=== PATIENT | female | born 1940 | race Caucasian/White ===

== ENCOUNTER 2019-07-08 12:05 | Emergency (ER) | payer MEDICARE, BC ==
[2019-07-08] MEDS ORDERED: Sodium Chloride 0.9% 10 ML Syringe FLUSH PRN (12:56)
--- NOTE | 2019-07-08 13:12 | EDM.PDOC ---
ED HPI GENERAL MEDICAL PROBLEM - General Chief Complaint: Respiratory Problem Stated Complaint: SHORTNESS OF BREATH Time Seen by Provider: 07/08/19 12:40 Source of Information: Reports: Patient History Limitations: Reports: No Limitations - History of Present Illness INITIAL COMMENTS - FREE TEXT/NARRATIVE: 78 YO WF presents to ER with shortness of breath x 2 days. Pt had TKA on 2018 and was discharged without complications on 07/06/2019. Pt reports she got home and began to feel more "winded" then normal. Pt reports earlier in the week she developed a head cold prior to surgery but her cold symptoms improved and surgery was performed as scheduled. Pt states she feels wheezing without any history of airway disease. Pt reports chest tightness but no real chest pain. Pt denies fever/chills, no nausea/vomiting, no lower extremity calf pain or significant swelling. Pt reports taking tramadol Q6 for pain. SaO2 on arrival to ER was 78% on RA. Pt is currently on 2L NC @94% and resting comfortably without chest pain or shortness of breath. Onset Date: 07/06/19 Duration: Day(s): (2) Location: Reports: Chest Quality: Reports: Other (tightness) Severity: Moderate Improves with: Reports: Rest Worsens with: Reports: Breathing Associated Symptoms: Reports: Chest Pain, Cough, Shortness of Breath - Related Data Allergies Allergy/AdvReac Type Severity Reaction Status Date / Time No Known Drug Allergies Allergy Cannot Verified 07/08/19 13:04 Remember Home Meds: Home Meds Acetaminophen [Tylenol Arthritis] 650 mg PO BID 07/08/19 [History] Acetaminophen/Diphenhydramine [Tylenol Pm Ex-Strength Caplet] 1 tab PO BEDTIME PRN 07/08/19 [History] Aspirin [Aspirin EC] 325 mg PO BID 07/08/19 [History] Celecoxib 200 mg PO BID 07/08/19 [History] Gluc Aguilar 2KCl/Chondr/Vit C/Kyree [Glucosamine-Chondr Complex] 1 each PO DAILY [History] Multivit-Min/Iron/Folic/Lutein [Multivitamin Women 50 Plus Tab] 1 tab PO DAILY 07/08/19 [History] Polyethylene Glycol 3350 [MiraLAX] 1 packet PO DAILY PRN 07/08/19 [History] Simvastatin 10 mg PO BEDTIME 07/08/19 [History] oxyCODONE 5 mg PO Q4H PRN 07/08/19 [History] traMADol HCl [Tramadol HCl] 50 mg PO DAILY 07/08/19 [History] ED ROS GENERAL - Review of Systems Review Of Systems: See Below Constitutional: Reports: No Symptoms HEENT: Reports: No Symptoms Respiratory: Reports: Shortness of Breath, Wheezing, Cough. Denies: Hemoptysis Cardiovascular: Reports: Chest Pain Endocrine: Reports: No Symptoms GI/Abdominal: Reports: No Symptoms : Reports: No Symptoms Musculoskeletal: Reports: No Symptoms Skin: Reports: No Symptoms Neurological: Reports: No Symptoms Psychiatric: Reports: No Symptoms Hematologic/Lymphatic: Reports: No Symptoms Immunologic: Reports: No Symptoms ED EXAM, GENERAL - Physical Exam Exam: See Below Exam Limited By: No Limitations General Appearance: Alert, WD/WN, No Apparent Distress Nose: Normal Inspection, Normal Mucosa, No Blood Throat/Mouth: Normal Inspection, Normal Lips, Normal Teeth, Normal Gums, Normal Oropharynx, Normal Voice, No Airway Compromise Head: Atraumatic, Normocephalic Neck: Normal Inspection, Supple, Non-Tender, Full Range of Motion Respiratory/Chest: No Respiratory Distress, Lungs Clear, Normal Breath Sounds, No Accessory Muscle Use, Chest Non-Tender Cardiovascular: Normal Peripheral Pulses, Regular Rate, Rhythm, No Edema, No Gallop, No JVD, No Murmur, No Rub GI/Abdominal: Normal Bowel Sounds, Soft, Non-Tender, No Organomegaly, No Distention, No Abnormal Bruit, No Mass Back Exam: Normal Inspection, Full Range of Motion, NT Extremities: Normal Inspection, No Pedal Edema, Normal Capillary Refill Neurological: Alert, Oriented, CN II-XII Intact, Normal Cognition, Normal Gait, Normal Reflexes, No Motor/Sensory Deficits Psychiatric: Normal Affect, Normal Mood Skin Exam: Warm, Dry, Intact, Normal Color, No Rash Lymphatic: No Adenopathy EKG INTERPRETATION EKG Date: 07/08/19 Time: 13:10 Rhythm: NSR Rate (Beats/Min): 87 Barbeau: LAD-Left Barbeau Deviation P-Wave: Present QRS: Normal ST-T: Normal QT: Normal Comparison: NA - No Prior EKG Course - Vital Signs Last Recorded V/S: Last Vital Signs Temp 36.4 C 07/08/19 12:30 Pulse 98 07/08/19 12:30 Resp 20 07/08/19 12:30 BP 135/56 L 07/08/19 12:30 Pulse Ox 93 L 07/08/19 12:32 - Orders/Labs/Meds Orders: Active Orders 24 hr Category Date Time Status Cardiac Monitoring [RC] . DIRECTED Care 07/08/19 12:54 Ordered EKG Documentation Completion [RC] ASDIRECTED Care 07/08/19 12:55 Ordered Oxygen Therapy Adult [Oxygen Therapy, ED] [RC] Care 07/08/19 12:54 Ordered ASDIRECTED Peripheral IV Care [RC] . DIRECTED Care 07/08/19 12:56 Ordered Chest w Cont [CT] Stat Exams 07/08/19 12:54 Ordered Sodium Chloride 0.9% [Normal Saline] 100 ml Med 07/08/19 13:15 Active IV ASDIRECTED Sodium Chloride 0.9% [Saline Flush] Med 07/08/19 12:56 Ordered 10 ml FLUSH Q8HR PRN Peripheral IV Insertion Adult [OM.PC] Routine Oth 07/08/19 12:56 Ordered EKG 12 Lead [EK] Routine Ther 07/08/19 12:54 Ordered Medication Orders Sodium Chloride (Normal Saline) 100 mls @ 200 mls/min IV ASDIRECTED NATALYA Sodium Chloride (Saline Flush) 10 ml FLUSH Q8HR PRN PRN Reason: keep vein open Labs: Laboratory Tests 07/08/19 07/08/19 07/08/19 Range/Units 12:55 12:55 12:55 WBC 10.45 H (5.00-10.00) 10^3/uL RBC 3.38 L (3.80-5.50) 10^6/uL Hgb 10.2 L (12.0-16.0) g/dL Hct 31.3 L (37.0-47.0) % MCV 92.6 H (82.0-92.0) fL MCH 30.2 (27.0-31.0) pg MCHC 32.6 (32.0-36.0) g/dL RDW 14.4 (11.5-14.5) % Plt Count 191 (150-400) 10^3/uL MPV 9.4 (7.4-10.4) fL Immature Gran % (Auto) 0.4 (0.0-5.0) % Neut % (Auto) 76.0 H (50.0-70.0) % Lymph % (Auto) 13.9 L (20.0-40.0) % [place] % (Auto) 8.8 H (2.0-8.0) % Eos % (Auto) 0.6 L (1.0-3.0) % Baso % (Auto) 0.3 (0.0-1.0) % Immature Gran # (Auto) 0.04 (0.00-0.50) 10^3/uL Neut # (Auto) 7.95 H (2.50-7.00) 10^3/uL Lymph # (Auto) 1.45 (1.00-4.00) 10^3/uL [place] # (Auto) 0.92 H (0.10-0.80) 10^3/uL Eos # (Auto) 0.06 L (0.10-0.30) 10^3/uL Baso # (Auto) 0.03 (0.00-0.10) 10^3/uL PT 9.1 (8.9-11.4) SEC INR 0.9 (0.9-1.1) APTT 26.5 (23.1-31.9) SEC Sodium 141 (136-145) mmol/L Potassium 4.7 (3.3-5.3) mmol/L Chloride 99 (98-115) mmol/L Carbon Dioxide 30.2 (21.0-32.0) mmol/L Anion Gap 16.5 H (5-15) mmol/L BUN 18 (6-25) mg/dL Creatinine 0.68 (0.51-1.17) mg/dL Est Cr Clr Drug Dosing 56.98 mL/min Estimated GFR (MDRD) > 60 mL/min Glucose 123 H (75 - 99) mg/dL Calcium 9.1 (8.7-10.3) mg/dL Total Bilirubin 1.8 H (0.2-1.0) mg/dL AST 46 H (15-37) U/L ALT 28 (12-78) U/L Alkaline Phosphatase 87 (46-116) IU/L Creatine Kinase 87 (26-276) U/L CK-MB (CK-2) 0.80 (0.00-4.30) ng/mL Troponin I 0.11 H* (0.00-0.070) ng/mL B-Natriuretic Peptide 372 H (0-100) pg/mL Total Protein 6.6 (6.4-8.2) g/dL Albumin 2.77 L (3.00-4.80) g/dL Meds: Medications Generic Name Dose Route Start Last Admin Trade Name Freq PRN Reason Stop Dose Admin Sodium Chloride 100 mls @ 200 mls/min 07/08/19 13:15 Normal Saline IV ASDIRECTED NATALYA Sodium Chloride 10 ml 07/08/19 12:56 Saline Flush FLUSH Q8HR PRN keep vein open Discontinued Medications Generic Name Dose Route Start Last Admin Trade Name Freq PRN Reason Stop Dose Admin Iopamidol 100 ml 07/08/19 13:15 Isovue-370 (76%) IV 07/08/19 13:16 ONETIME ONE - Radiology Interpretation Free Text/Narrative:: CT Chest- bilateral PE- extensive on the right Departure - Departure Time of Disposition: 14:46 Disposition: DC/Tfer to Acute Hospital 02 Condition: Serious Clinical Impression: Pulmonary embolism Qualifiers: Chronicity: acute Acute cor pulmonale presence: with acute cor pulmonale - Discharge Information Referrals: Nancie Peacock MD [Primary Care Provider] - Forms: ED Department Discharge, Interfacility Transfer [facility] Sepsis Event Note - Evaluation Sepsis Screening Result: No Definite Risk - Focused Exam Vital Signs: Vital Signs Temp Pulse Resp BP Pulse Ox Pulse Ox 07/08/19 12:32 93 L 07/08/19 12:30 36.4 C 98 20 135/56 L 77 L 77 L Date Exam was Performed: 07/08/19 Time Exam was Performed: 13:38 - My Orders Last 24 Hours: My Active Orders 07/08/19 12:54 Cardiac Monitoring [RC] . DIRECTED Oxygen Therapy Adult [Oxygen Therapy, ED] [RC] ASDIRECTED Chest w Cont [CT] Stat EKG 12 Lead [EK] Routine 07/08/19 12:55 EKG Documentation Completion [RC] ASDIRECTED 07/08/19 12:56 Peripheral IV Care [RC] . DIRECTED Sodium Chloride 0.9% [Saline Flush] 10 ml FLUSH Q8HR PRN Peripheral IV Insertion Adult [OM.PC] Routine 07/08/19 13:15 Sodium Chloride 0.9% [Normal Saline] 100 ml IV ASDIRECTED - Assessment/Plan Last 24 Hours: My Active Orders 07/08/19 12:54 Cardiac Monitoring [RC] . DIRECTED Oxygen Therapy Adult [Oxygen Therapy, ED] [RC] ASDIRECTED Chest w Cont [CT] Stat EKG 12 Lead [EK] Routine 07/08/19 12:55 EKG Documentation Completion [RC] ASDIRECTED 07/08/19 12:56 Peripheral IV Care [RC] . DIRECTED Sodium Chloride 0.9% [Saline Flush] 10 ml FLUSH Q8HR PRN Peripheral IV Insertion Adult [OM.PC] Routine 07/08/19 13:15 Sodium Chloride 0.9% [Normal Saline] 100 ml IV ASDIRECTED Assessment:: 1. Bilateral pulmonary emboli Plan: 1. Transfer to [facility]- Dr Mullen 2. Heparin drip with bolus 3. supportive care- oxygen NC @ 2.5L
[2019-07-08 13:34] LABS: ANION GAP 16.5 mmol/L (5-15); CHLORIDE,CL 99 mmol/L (98-115); SODIUM,NA 141 mmol/L (136-145)
[2019-07-08] MEDS: Iopamidol 755 Mg/ML 100 ML Bottle IV ONE (13:55)
[2019-07-08] MEDS: Sodium Chloride 0.9% 100 ML IV SCH (13:56)
[2019-07-08] MEDS: Heparin Sodium/0.45% NaCl 25,000 UNITS/250 ML BAG IV SCH (15:05)
[2019-07-08] MEDS: Heparin Sodium 5,000 Units/ML Vial IVPUSH ONE (15:05)
== END 2019-07-08 15:30 ==
LOC: KA.ED 12:05
DX: I26.09 Other pulmonary embolism with acute cor pulmonale (principal); Z79.82 Long term (current) use of aspirin
CPT/HCPCS: 71260; 80053; 82550; 82553; 83880; 84484; 85025; 85610; 85730; 93005; J1644; J7050; Q9967

== ENCOUNTER 2024-10-03 09:32 | Emergency (ER) | payer MEDICARE, BC ==
[2024-10-03 10:30] LABS: BASOPHILS ABSOLUTE AUTO 0.02 10^3/uL (0.00-0.10); BASOPHILS PERCENT AUTO 0.5 % (0.0-1.0); EOSINOPHILS ABSOLUTE AUTO 0.15 10^3/uL (0.10-0.30); EOSINOPHILS PERCENT AUTO 3.4 % (1.0-3.0); HEMATOCRIT 41.2 % (37.0-47.0); HEMOGLOBIN 13.3 g/dL (12.0-16.0); IMMATURE GRAN ABSOLUTE AUTO 0.01 10^3/uL (0.00-0.04); IMMATURE GRAN PERCENT AUTO 0.2 % (0.0-0.4); LYMPHOCYTES ABSOLUTE AUTO 1.89 10^3/uL (1.00-4.00); LYMPHOCYTES PERCENT AUTO 43.2 % (20.0-40.0); MEAN CORPUSCULAR HEMOGLOBIN 29.9 pg (27.0-31.0); MEAN CORPUSCULAR HGB CONC 32.3 g/dL (32.0-36.0); MEAN CORPUSCULAR VOLUME 92.6 fL (82.0-92.0); MEAN PLATELET VOLUME 8.8 fL (7.4-10.4); MONOCYTES ABSOLUTE AUTO 0.44 10^3/uL (0.10-0.80); MONOCYTES PERCENT AUTO 10.1 % (2.0-8.0); NEUTROPHILS ABSOLUTE AUTO 1.86 10^3/uL (2.50-7.00); NEUTROPHILS PERCENT AUTO 42.6 % (50.0-70.0); PLATELET COUNT,PLT 239 10^3/uL (150-400); RED BLOOD CELL COUNT 4.45 10^6/uL (3.80-5.50); RED CELL DISTRIBUTION WIDTH 13.4 % (11.5-14.5); WHITE BLOOD CELL COUNT,WBC 4.37 10^3/uL (5.00-10.00)
[2024-10-03 10:45] LABS: ANION GAP 10.9 mmol/L (5-15); CALCIUM 9.4 mg/dL (8.7-10.3); CARBON DIOXIDE,CO2 30.6 mmol/L (21.0-32.0); CREATININE 0.79 mg/dL (0.51-1.17); EST CRCL DRUG DOSING (CG) 41.18 mL/min; POTASSIUM,K 4.5 mmol/L (3.5-5.1)
[2024-10-03] MEDS: Clopidogrel 75 MG Tab PO ONE (12:06)
== END 2024-10-03 12:10 | disposition home or self-care (01) ==
LOC: KA.ED 09:32
DX: G45.9 Transient cerebral ischemic attack, unspecified (principal); H53.122 Transient visual loss, left eye; E78.00 Pure hypercholesterolemia, unspecified; Z79.899 Other long term (current) drug therapy
CPT/HCPCS: 36415; 70450; 80048; 85025; 85379; 99284; A9270-GY

== ENCOUNTER 2025-02-04 22:21 | Emergency (ER) | payer MEDICARE, BC | END 2025-02-05 01:40 | LOC: KA.ED 22:21 | DX: H53.122 Transient visual loss, left eye (principal); E78.00 Pure hypercholesterolemia, unspecified; Z79.899 Other long term (current) drug therapy; Z79.82 Long term (current) use of aspirin | CPT/HCPCS: 99283; 99284; A9270-GY; Q3014 ==